=== PATIENT | male | born 1950 | race Caucasian/White ===

== ENCOUNTER 2016-08-29 13:21 | Emergency (ER) | payer OTHER ==
[~2016-08-29 13:21] MED LIST: ALPR0.5T3 PO; LEVO75TA3 PO; METO50TA PO; PROT40TA PO; SYMB160A INH; ZOLO50TA PO
--- NOTE | 2016-08-29 15:31 | PD ---
HPI Chief Complaint: Psychiatric Symptoms Time Seen by Provider: 15:31 Travel History International Travel<30 days: No Contact w/Intl Traveler<30days: No Traveled to known affect area: No History of Present Illness HPI 65-year-old male with PMH of HTN, blindness presents to the ED under Chavez act for evaluation of suicidal ideation. 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 On presentation the patient denies suicidal ideation. He admits making the statement but states that he made it out of frustration. He endorses several stressors revolving around an upcoming eviction. He states that being Chavez acted compounded these frustrations and he is very angry. He endorses previous psychiatric diagnosis of anxiety. He endorses previous psychiatric hospitalization and previous suicide attempt. He denies somatic complaints on presentation. PFSH Past Medical History Autoimmune Disease: No Blood Disorders: No Anxiety: Yes Depression: Yes Cancer: No Cardiovascular Problems: Yes Diminished Hearing: No Endocrine: No Gastrointestinal Disorders: Yes Genitourinary: No Hypertension: Yes Immune Disorder: No Implanted Vascular Access Dvce: No Musculoskeletal: Yes (RIGHT HIP ARTHRITIS, DUE FOR REPLACEMENT) Neurologic: Yes Psychiatric: Yes Reproductive: No Respiratory: Yes Migraines: Yes Ulcer: Yes PNEUMOCCOCAL Vaccine (Year): 1 Past Surgical History Body Medical Devices: SEEING EYE DOG NAMED LIBERTY Pacemaker: No Other Surgery: No Social History Alcohol Use: Yes ("A MODERATE AMOUNT") Tobacco Use: No Substance Use: No Allergies-Medications (Allergen,Severity, Reaction): Coded Allergies: No Known Allergies (Verified , 10/24/15) Reported Meds & Prescriptions Reported Meds & Active Scripts Active Reported Zoloft (Sertraline HCl) 50 Mg Tab 100 Mg PO DAILY Symbicort (Budesonide/Formoterol Fumarate) 160 Mcg/4.5 Mcg Aer 2 Puff INH BID * SHAKE WELL BEFORE USE * Protonix (Pantoprazole Sodium) 40 Mg Tab 40 Mg PO BID Metoprolol Tartrate 50 mg (Metoprolol Tartrate) 50 Mg Tab 25 Mg PO TID Alprazolam 0.5 Mg Tab 0.5 Mg PO BID Levothyroxine 75 mcg (Levothyroxine Sodium) 75 Mcg Tab 75 Mcg PO DAILY Review of Systems Except as stated in HPI: all other systems reviewed are Neg Physical Exam Narrative GENERAL: Well-nourished, well-developed thin white male in no acute distress. PSYCHIATRIC: Agitated, angry. SKIN: Focused skin assessment warm/dry. HEAD: Normocephalic. EYES: Left eye completely opaque. NECK: Supple, trachea midline. No JVD or lymphadenopathy. CARDIOVASCULAR: Regular rate and rhythm without murmurs, gallops, or rubs. RESPIRATORY: Breath sounds air and equal bilaterally. No accessory muscle use. GASTROINTESTINAL: Abdomen soft, non-tender, nondistended. Active bowel sounds. MUSCULOSKELETAL: No cyanosis, or edema. BACK: Nontender without obvious deformity. No CVA tenderness. Data Data Last Documented VS Vital Signs Date Time Temp Pulse Resp B/P Pulse Ox O2 Delivery O2 Flow Rate FiO2 08/29/16 16:52 70 18 08/29/16 16:51 98.4 170/89 97 Room Air Orders Complete Blood Count With Diff (08/29/16 14:59) Comprehensive Metabolic Panel (08/29/16 14:59) Urinalysis - C+S If Indicated (08/29/16 14:59) Psych Screen (08/29/16 14:59) Drug Screen, Random Urine (08/29/16 14:59) Alcohol (Ethanol) (08/29/16 14:59) Lorazepam (Ativan) (08/29/16 16:15) Diet Regular Basic (08/29/16 Dinner) Labs Laboratory Tests Test 08/29/16 08/29/16 14:23 15:15 White Blood Count 5.7 TH/MM3 Red Blood Count 3.72 MIL/MM3 Hemoglobin 11.5 GM/DL Hematocrit 34.9 % Mean Corpuscular Volume 93.7 FL Mean Corpuscular Hemoglobin 30.9 PG Mean Corpuscular Hemoglobin 33.0 % Concent Red Cell Distribution Width 16.1 % Platelet Count 217 TH/MM3 Mean Platelet Volume 9.4 FL Neutrophils (%) (Auto) 71.4 % Lymphocytes (%) (Auto) 14.5 % Monocytes (%) (Auto) 9.1 % Eosinophils (%) (Auto) 4.4 % Basophils (%) (Auto) 0.6 % Neutrophils # (Auto) 4.0 TH/MM3 Lymphocytes # (Auto) 0.8 TH/MM3 Monocytes # (Auto) 0.5 TH/MM3 Eosinophils # (Auto) 0.2 TH/MM3 Basophils # (Auto) 0.0 TH/MM3 CBC Comment DIFF FINAL Differential Comment Sodium Level 140 MEQ/L Potassium Level 3.9 MEQ/L Chloride Level 104 MEQ/L Carbon Dioxide Level 26.4 MEQ/L Anion Gap 10 MEQ/L Blood Urea Nitrogen 20 MG/DL Creatinine 1.86 MG/DL Estimat Glomerular Filtration 37 ML/MIN Rate Random Glucose 69 MG/DL Calcium Level 8.8 MG/DL Total Bilirubin 0.3 MG/DL Aspartate Amino Transf 23 U/L (AST/SGOT) Alanine Aminotransferase 20 U/L (ALT/SGPT) Alkaline Phosphatase 73 U/L Total Protein 7.0 GM/DL Albumin 3.4 GM/DL Ethyl Alcohol Level 8 MG/DL Urine Color COLORLESS Urine Turbidity CLEAR Urine pH 6.5 Urine Specific [place] 1.003 Urine Protein NEG mg/dL Urine Glucose (UA) NEG mg/dL Urine Ketones NEG mg/dL Urine Occult Blood NEG Urine Nitrite NEG Urine Bilirubin NEG Urine Urobilinogen LESS THAN 2.0 MG/DL Urine Leukocyte Esterase NEG Microscopic Urinalysis Comment CULT NOT INDICATED Urine Opiates Screen NEG Urine Barbiturates Screen NEG Urine Amphetamines Screen NEG Urine Benzodiazepines Screen NEG Urine Cocaine Screen NEG Urine Cannabinoids Screen NEG MDM Medical Decision Making Medical Screen Exam Complete: Yes Emergency Medical Condition: Yes Differential Diagnosis Adjustment disorder versus anxiety versus bipolar versus depression versus dementia versus electrolyte disorder versus malingering versus mood disorder versus ODD versus psychosis versus PTSD versus schizophrenia versus schizoaffective disorder versus substance-induced mood disorder versus other Narrative Course 65-year-old male with PMH of HTN, blindness presents to the ED under Chavez act for evaluation of suicidal ideation. 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 On presentation the patient denies suicidal ideation. He admits making the statement but states that he made it out of frustration. He endorses several stressors revolving around an upcoming eviction. He states that being Chavez acted compounded these frustrations and he is very angry. He endorses previous psychiatric diagnosis of anxiety. He endorses previous psychiatric hospitalization and previous suicide attempt. He denies somatic complaints on presentation. Vitals reviewed. Physical exam reveals an angry blind male in no acute distress. Physical exam otherwise unremarkable. Laboratory evaluation reveals mild anemia chronic. Creatinine elevated, chronic per record review. Tox screen negative. Alcohol 8. This patient medically cleared for psychiatric evaluation. Please see psych notes for disposition. Diagnosis Primary Impression: Medical clearance for psychiatric admission Leonie Borges Aug 29, 2016 15:31
[2016-08-29 16:05] LABS: BASOPHIL % 0.6 % (0.0-2.0); EOSINOPHIL # 0.2 TH/MM3 (0-0.4); EOSINOPHIL % 4.4 % (0.0-4.0); HEMATOCRIT 34.9 % (39.0-51.0); HEMO FLAGS DIFF FINAL; LYMPH % 14.5 % (9.0-44.0); LYMPHOCYTE # 0.8 TH/MM3 (1.0-4.8); MEAN CELL VOLUME 93.7 FL (80.0-100.0); MEAN CORPUSCULAR HEMOGLOBIN 30.9 PG (27.0-34.0); MONO % 9.1 % (0.0-8.0); NEUT % 71.4 % (16.0-70.0); PLATELET COUNT 217 TH/MM3 (150-450); RED BLOOD COUNT 3.72 MIL/MM3 (4.50-5.90); RED CELL DISTRIBUTION WIDTH 16.1 % (11.6-17.2); WHITE BLOOD COUNT 5.7 TH/MM3 (4.0-11.0)
[2016-08-29 16:06] LABS: BLOOD, URINE NEG (NEG); GLUCOSE,URINE NEG (NEG); KETONE, URINE NEG (NEG); NITRITE,URINE NEG (NEG); PH, URINE 6.5 (5.0-8.5); URINE COLOR COLORLESS (YELLW/STRAW)
[2016-08-29 16:07] LABS: COMMENT (UR) CULT NOT INDICATED; CULTURE IF INDICATED CULT NOT INDICATED
[2016-08-29 16:12] LABS: AMPHETAMINE, URINE NEG (NEG); BARBITURATES, URINE NEG (NEG); COCAINE, URINE NEG (NEG)
[2016-08-29] MEDS ORDERED: LORazepam 1 MG TAB PO ONE (16:15)
[2016-08-29 16:22] LABS: ALT (GPT) 20 U/L (12-78); ANION GAP 10 MEQ/L (5-15); AST (GOT) 23 U/L (15-37); BICARBONATE 26.4 MEQ/L (21.0-32.0); BLOOD UREA NITROGEN 20 MG/DL (7-18); CHLORIDE 104 MEQ/L (98-107); GLOMERULAR FILTRATION RATE 37 ML/MIN (>89); POTASSIUM 3.9 MEQ/L (3.5-5.1); SODIUM (NA) 140 MEQ/L (136-145)
[2016-08-29 16:24] LABS: ALKALINE PHOSPHATASE 73 U/L (45-117); TOTAL BILIRUBIN ADULT 0.3 MG/DL (0.2-1.0)
[2016-08-29 16:51] VITALS: BP 170/89; PULSE 56; RESP 18; TEMP 98.4; O2SAT 97
[2016-08-29 18:21] VITALS: BP 152/97; PULSE 81; RESP 18; O2SAT 95
--- NOTE | 2016-08-29 18:34 | PD ---
History of Present Illness Chief Complaint: Psychiatric Symptoms Time Seen by Provider: 18:00 Travel History International Travel<30 Days: No Contact w/Intl Traveler<30days: No Known affected area: No Legal Status Legal Status: [place] Act Chavez Act Signed By: Yudelka Leyva History of Present Illness: 65-year-old male who is blind, Chavez acted because he made a inappropriate comment to the [employer] route salesman and driver. Patient has to vacate his current apartment and is having difficulty finding people to help him move his belongings. He became frustrated and admittedly made a suicidal comment. However, at this time the patient denies any real suicidal or homicidal ideation, plan or intent. He is somewhat frustrated and aggravated because he is here. However he is calm and cooperative. He is verbally ralph for safety. His cognition is intact and he has no psychotic symptoms. He would like to go home and as he states "I don't have time to be suicidal." PFSH Past Medical History Autoimmune Disease: No Blood Disorders: No Anxiety: Yes Depression: Yes Cancer: No Cardiovascular Problems: Yes Diminished Hearing: No Endocrine: No Gastrointestinal Disorders: Yes Genitourinary: No Hypertension: Yes Immune Disorder: No Implanted Vascular Access Dvce: No Musculoskeletal: Yes (RIGHT HIP ARTHRITIS, DUE FOR REPLACEMENT) Neurologic: Yes Psychiatric: Yes Reproductive: No Respiratory: Yes Migraines: Yes Ulcer: Yes PNEUMOCCOCAL Vaccine (Year): 1 Past Surgical History Body Medical Devices: SEEING EYE DOG NAMED LIBERTY Pacemaker: No Other Surgery: No Psychiatric History Psychiatric History Hx Psychiatric Treatment: Denied History of Inpatient Treatment: No Guns or firearms in home: No Social History Hx Alcohol Use: Yes ("A MODERATE AMOUNT") Hx Tobacco Use: No Hx Substance Use: No Allergies-Medications (Allergen,Severity, Reaction): Coded Allergies: No Known Allergies (Verified , 10/24/15) Reported Meds & Prescriptions Reported Meds & Active Scripts Active Reported Zoloft (Sertraline HCl) 50 Mg Tab 100 Mg PO DAILY Symbicort (Budesonide/Formoterol Fumarate) 160 Mcg/4.5 Mcg Aer 2 Puff INH BID * SHAKE WELL BEFORE USE * Protonix (Pantoprazole Sodium) 40 Mg Tab 40 Mg PO BID Metoprolol Tartrate 50 mg (Metoprolol Tartrate) 50 Mg Tab 25 Mg PO TID Alprazolam 0.5 Mg Tab 0.5 Mg PO BID Levothyroxine 75 mcg (Levothyroxine Sodium) 75 Mcg Tab 75 Mcg PO DAILY Review of Systems Except as stated in HPI: all other systems reviewed are Neg Exam Alert: Yes [place]: Person, Place, Date, Situation Mood: Calm Affect: Appropriate Speech: Clear, Logical Eye Contact: Other Memory Intact: Immediate, Recent, Remote Insight/Judgement Intact MDM Medical Decision Making Medical Record Reviewed: Yes Assessment/Plan 65-year-old male who is legitimately blind, got frustrated in front of a [employer] route salesman and driver and made an inappropriate comment about suicidality. Patient is adamantly stating he is not suicidal. He has no suicidal or homicidal ideation , plan or intent. He does need to move and he needs assistance to move his belongings. Because of his blindness, he gets frustrated at times and said the wrong thing. Although there may be some risk and letting him go, this physician feels it is important to support the demands [place] in this matter. Orders Complete Blood Count With Diff (08/29/16 14:59) Comprehensive Metabolic Panel (08/29/16 14:59) Urinalysis - C+S If Indicated (08/29/16 14:59) Psych Screen (08/29/16 14:59) Drug Screen, Random Urine (08/29/16 14:59) Alcohol (Ethanol) (08/29/16 14:59) Lorazepam (Ativan) (08/29/16 16:15) Diet Regular Basic (08/29/16 Dinner) Results Vital Signs Date Time Temp Pulse Resp B/P Pulse Ox O2 Delivery O2 Flow Rate FiO2 08/29/16 18:21 81 18 152/97 95 Room Air 08/29/16 16:52 70 18 08/29/16 16:51 98.4 56 18 170/89 97 Room Air Laboratory Tests Test 08/29/16 08/29/16 14:23 15:15 White Blood Count 5.7 Red Blood Count 3.72 Hemoglobin 11.5 Hematocrit 34.9 Mean Corpuscular Volume 93.7 Mean Corpuscular Hemoglobin 30.9 Mean Corpuscular Hemoglobin 33.0 Concent Red Cell Distribution Width 16.1 Platelet Count 217 Mean Platelet Volume 9.4 Neutrophils (%) (Auto) 71.4 Lymphocytes (%) (Auto) 14.5 Monocytes (%) (Auto) 9.1 Eosinophils (%) (Auto) 4.4 Basophils (%) (Auto) 0.6 Neutrophils # (Auto) 4.0 Lymphocytes # (Auto) 0.8 Monocytes # (Auto) 0.5 Eosinophils # (Auto) 0.2 Basophils # (Auto) 0.0 CBC Comment DIFF FINAL Differential Comment Sodium Level 140 Potassium Level 3.9 Chloride Level 104 Carbon Dioxide Level 26.4 Anion Gap 10 Blood Urea Nitrogen 20 Creatinine 1.86 Estimat Glomerular Filtration 37 Rate Random Glucose 69 Calcium Level 8.8 Total Bilirubin 0.3 Aspartate Amino Transf 23 (AST/SGOT) Alanine Aminotransferase 20 (ALT/SGPT) Alkaline Phosphatase 73 Total Protein 7.0 Albumin 3.4 Ethyl Alcohol Level 8 Urine Color COLORLESS Urine Turbidity CLEAR Urine pH 6.5 Urine Specific [place] 1.003 Urine Protein NEG Urine Glucose (UA) NEG Urine Ketones NEG Urine Occult Blood NEG Urine Nitrite NEG Urine Bilirubin NEG Urine Urobilinogen LESS THAN 2.0 Urine Leukocyte Esterase NEG Microscopic Urinalysis Comment CULT NOT INDICATED Urine Opiates Screen NEG Urine Barbiturates Screen NEG Urine Amphetamines Screen NEG Urine Benzodiazepines Screen NEG Urine Cocaine Screen NEG Urine Cannabinoids Screen NEG Diagnosis Primary Impression: Adjustment disorder with mixed disturbance of emotions and conduct Additional Impression: Blindness Problem Qualifiers Dustin Chino MD Aug 29, 2016 18:34
== END 2016-08-29 19:01 | disposition home or self-care (01) ==
LOC: NEPD 13:21 → NEPJ 19:01
DX: F43.25 Adjustment disorder with mixed disturbance of emotions and conduct (principal); H54.0 Blindness, both eyes; I10 Essential (primary) hypertension; F41.8 Other specified anxiety disorders
CPT/HCPCS: 80053; 80307; 81001; 85025; 99284